=== PATIENT | female | born 2000 | race Two or more races ===

== ENCOUNTER 2023-05-05 14:07 | Outpatient (CLI) | payer OTHER, SELFPAY ==
[2023-05-05 23:19] LABS: Chlamydia DNA Amplified* NOT DETECTED (No Detected); GC DNA Amplified* NOT DETECTED (No Detected)
== END 2023-05-05 14:08 | disposition home or self-care (01) ==
LOC: LKVREF 14:08
PROVIDERS: PCP Physician Assistant Medical; Visit Provider Physician Assistant Medical
DX: Z11.3 Encounter for screening for infections with a predominantly sexual mode of transmission (principal)
CPT/HCPCS: 87491; 87591

== ENCOUNTER 2023-05-14 07:58 | Outpatient (CLI) | payer OTHER, SELFPAY | END 2023-05-14 07:59 | disposition home or self-care (01) | LOC: NFLDREF 05-15 08:18 | PROVIDERS: PCP Physician Assistant Medical; Referring Provider Physician Assistant Medical; Visit Provider Physician Assistant Medical | DX: R45.89 Other symptoms and signs involving emotional state (principal); Z13.220 Encounter for screening for lipoid disorders; Z13.1 Encounter for screening for diabetes mellitus; Z13.29 Encounter for screening for other suspected endocrine disorder; Z13.0 Encounter for screening for diseases of the blood and blood-forming organs and certain disorders involving the immune mechanism | CPT/HCPCS: 80061; 82947; 84443; 85025 ==

== ENCOUNTER 2023-07-10 09:03 | Outpatient (CLI) | payer OTHER, SELFPAY | END 2023-07-10 09:04 | disposition home or self-care (01) | PROVIDERS: PCP Physician Assistant Medical; Visit Provider Physician Assistant Medical | DX: R73.01 Impaired fasting glucose (principal); E55.9 Vitamin D deficiency, unspecified | CPT/HCPCS: 82306; 82947 ==

== ENCOUNTER 2024-06-14 13:35 | Outpatient (CLI) | payer OTHER, SELFPAY ==
[2024-06-14 22:56] LABS: Chlamydia DNA Amplified* NOT DETECTED (No Detected); GC DNA Amplified* NOT DETECTED (No Detected)
== END 2024-06-14 13:36 | disposition home or self-care (01) ==
PROVIDERS: PCP Physician Assistant Medical; Visit Provider Physician Assistant Medical
DX: E55.9 Vitamin D deficiency, unspecified (principal); R73.01 Impaired fasting glucose; N94.6 Dysmenorrhea, unspecified; Z13.6 Encounter for screening for cardiovascular disorders; Z13.1 Encounter for screening for diabetes mellitus; Z13.0 Encounter for screening for diseases of the blood and blood-forming organs and certain disorders involving the immune mechanism; Z11.3 Encounter for screening for infections with a predominantly sexual mode of transmission; Z11.59 Encounter for screening for other viral diseases
CPT/HCPCS: 80053; 80061; 82306; 84443; 86592; 86703; 86803; 87491; 87591

== ENCOUNTER 2024-06-22 13:34 | Outpatient (CLI) | payer OTHER, SELFPAY ==
--- NOTE | 2024-06-22 14:00 | CRLHL7_ITS ---
For Patients: As a result of the Century Cures Act, medical imaging exams and procedure reports are released immediately into your electronic medical record. You may view this report before your referring provider. If you have questions, please contact your health care provider. INDICATION: Painful menses COMPARISON: none TECHNIQUE: 2D noland scale and color Doppler images were acquired of the pelvis using a transabdominal and transvaginal approach. FINDINGS: Sonographic images demonstrate a normal size and smooth outer contour of the uterus. Uterus measures 10.3 cm in length by 4.9 cm in AP diameter by 6.7 cm in transverse dimension. The myometrium has a normal uniform echotexture. The endometrial lining measures 11 mm in composite thickness. Hyperechoic focus within the endometrium is present measuring 4 x 2 x 4 millimeters. The right ovary measures 3.8 x 3.0 x 3.0 cm in size and the left ovary measures 2.4 x 2.0 x 2.2 cm. The ovaries demonstrate normal arterial and venous blood flow on color Doppler analysis. There are no suspicious fluid collections within the cul-de-sac. Simple cyst right ovary measures 2.5 x 2.1 x 1.9 cm. Left adnexal cyst is present measuring 2.3 x 2.0 x 2.3 cm. IMPRESSION: Endometrial thickness 11 millimeters. No endometrial fluid. No uterine fibroid. Possible 4 millimeter endometrial polyp versus endometrial calcification. Simple right ovarian cyst measures 2.5 cm. Simple left adnexal cyst measures 2.3 cm. Dictated by Jose Galarza MD @ 06/23/2024 12:50:49 PM (Electronically Signed)
== END 2024-06-22 13:35 | disposition home or self-care (01) ==
LOC: US 13:35
PROVIDERS: PCP Physician Assistant Medical; Visit Provider Physician Assistant Medical
DX: N94.6 Dysmenorrhea, unspecified (principal); R93.89 Abnormal findings on diagnostic imaging of other specified body structures; N83.291 Other ovarian cyst, right side; N83.292 Other ovarian cyst, left side
CPT/HCPCS: 76830; 76856; 93976

== ENCOUNTER 2024-10-27 09:17 | Outpatient (CLI) | payer OTHER, SELFPAY | END 2024-10-27 09:18 | disposition home or self-care (01) | PROVIDERS: PCP Physician Assistant Medical; Visit Provider Physician Assistant Medical | DX: E55.9 Vitamin D deficiency, unspecified (principal); N93.9 Abnormal uterine and vaginal bleeding, unspecified; R74.01 Elevation of levels of liver transaminase levels | CPT/HCPCS: 80076; 82306; 82533 ==